=== PATIENT | female | born 1990 | race Caucasian/White ===

== ENCOUNTER 2019-12-27 18:23 | Emergency (ER) | payer OTHER, SELFPAY ==
[2019-12-27 18:23] VITALS: BP 133/80; PULSE 60; RESP 16; TEMP 36.8; O2SAT 100; BMI 47.2
--- NOTE | 2019-12-27 18:48 | CT_ITS ---
PROCEDURE: CT ABDOMEN PELVIS W CON CLINICAL INDICATION: periumbilical pain Periumbilical pain with nausea COMPARISON: No exams were available for comparison TECHNIQUE: IV Contrast: 75ML OPTIRAY 350 Oral Contrast None Axial images obtained with sagittal and coronal reformats. All CT scans at the facility use one or more dose reduction, viz: automated exposure control, ma/kV adjustment per patient size (including targeted exams where dose is matched to indication, i.e. head), or iterative reconstruction technique. FINDINGS: LOWER THORAX: No acute finding. 3 mm noncalcified nodule right middle lobe ABDOMEN & PELVIS: Prior cholecystectomy. Liver, spleen, adrenal glands, pancreas, and kidneys have an unremarkable appearance. There are few small periaortic lymph nodes. No evidence of appendicitis diverticulitis intestinal obstruction or free air. There are few scattered colonic diverticula. No pelvic mass or abnormal fluid collection. No acute bony finding. IMPRESSION: No acute abdominal or pelvic findings. Nonspecific 3 mm nodule right middle lobe Dictated by: Kayden Orozco MD 12/28/2019 05:21 Kayden Orozco MD in [place] 12/28/2019 05:21
[2019-12-27 18:52] LABS: Microscopic, Urine URINE MICROSCOPIC (MICROSCOPIC)
[2019-12-27 18:58] LABS: Basophils % 0.3 % (0.1-2.0); Eosinophils # 0.4 K/mm3 (0.0-0.4); Hemoglobin 12.5 g/dL (12.2-16.2); Lymphocytes % 28.8 % (10-50); Mean Corpuscular HGB Conc 32.8 g/dL (31.8-35.4); Mean Corpuscular Hemoglobin 29.3 pg (27.0-31.2); Mean Corpuscular Volume 89.3 fl (81-99); Mean Platelet Volume 8.1 fl (7.4-10.4); Monocytes # 0.3 K/mm3 (0.1-1.0); Monocytes % 4.5 % (1.7-9.3); Neutrophils # 4.2 K/mm3 (1.8-7.8); Neutrophils % 60.4 % (37.0-80.0); Platelet Count 319 K/mm3 (142-424); Red Blood Count 4.25 M/mm3 (4.20-5.40); Red Cell Distribution Width 14.2 % (11.5-17.5); White Blood Count 6.9 K/mm3 (4.8-10.8)
--- NOTE | 2019-12-27 18:58 | HMH.EDGENADL ---
ED Disposition Clinical Impression: Gastroenteritis Disposition: Home, Self-Care Condition on Discharge: Good Instructions: DI for Acute Abdomen Prescriptions: Dicyclomine HCl [Bentyl 10mg capsule] 10 mg PO TID #9 cap Prescription Printed Ondansetron [Zofran 4mg ODT] 4 mg PO Q6H PRN #20 tab.rapdis PRN Reason: Nausea Prescription Printed Referrals: Jeannette Moreira [Primary Care Provider] - - Critical Care Critical Care Time: No Attestation: On 12/27/19, the high probability of a clinically significant, sudden or life threatening deterioration of the following system(s) required my full and direct attention, intervention and personal management. The time I documented below is in addition to time spent performing reported procedures but includes the following listed in this critical care notation. Medical Decision Making - Dante Inquiry Pt receiving controlled substance: No Vital Signs: 12/27/19 18:23 12/27/19 19:55 Temperature 98.2 F Temperature Source Oral Pulse Rate [Right] 60 61 Respiratory Rate 16 18 Blood Pressure [Right Arm] 133/80 111/68 Blood Pressure Mean [Right Arm] 97 82 02 Sat by Pulse Oximetry 100 100 Oxygen Delivery Method Room Air - Lab Data Lab Results 12/27/19 18:40: Urine Color Yellow, Urine Appearance Clear, Urine pH 6.0, Ur Specific [place] >= 1.030, Urine Protein Trace, Urine Glucose (UA) Negative, Urine Ketones Negative, Urine Blood Negative, Urine Nitrate Negative, Urine Bilirubin Negative, Urine Urobilinogen 0.2, Ur Leukocyte Esterase Negative, Urine WBC Occasional, Ur Squamous Epith Cells 5-10, Urine Bacteria Trace 12/27/19 18:45: WBC 6.9, RBC 4.25, Hgb 12.5, Hct 38.0, MCV 89.3, MCH 29.3, MCHC 32.8, RDW 14.2, Plt Count 319, MPV 8.1, Neut % (Auto) 60.4, Lymph % (Auto) 28.8, [place] % (Auto) 4.5, Eos % (Auto) 6.0, Baso % (Auto) 0.3, Neut # (Auto) 4.2, Lymph # (Auto) 2.0, [place] # (Auto) 0.3, Eos # (Auto) 0.4, Baso # (Auto) 0.0 12/27/19 18:45: Sodium 140, Potassium 3.8, Chloride 104, Carbon Dioxide 28, Anion Gap 11.8, BUN 11, Creatinine 0.70, Estimated Creat Clear 101, Estimated GFR 98, Est GFR ( Amer) 119, Glucose 92, Calcium 9.7, Total Bilirubin 0.4, AST 29, ALT 26, Alkaline Phosphatase 86, Total Protein 7.7, Albumin 4.2, Globulin 3.5 H, Albumin/Globulin Ratio 1.2, Lipase 102 Result diagrams: 12/27/19 18:45 12/27/19 18:45 Orders (Tests/Meds): ED MEDICATIONS Generic Name Dose Route Start Last Admin Trade Name Freq PRN Reason Stop Dose Admin Morphine Sulfate 4 mg 12/27/19 18:51 12/27/19 19:00 Morphine 4mg/Ml Syringe IV 01/26/20 18:50 4 mg Q1HP PRN Administration Breakthru Moderate Pain Discontinued Medications Generic Name Dose Route Start Last Admin Trade Name Freq PRN Reason Stop Dose Admin Acetaminophen 1,000 mg 12/27/19 18:48 12/27/19 18:58 Tylenol 500mg Tablet PO 12/27/19 18:49 1,000 mg ONCE ONE Administration Dicyclomine HCl 10 mg 12/27/19 20:11 Bentyl 10mg Capsule PO 12/27/19 20:12 ONCE ONE Ioversol 75 ml 12/27/19 19:34 12/27/19 19:34 Rad-Optiray 350 100ml Vial IV 12/27/19 19:35 75 ml ONCE ONE Administration Protocol Sodium Chloride 10 ml 12/27/19 19:34 12/27/19 19:34 Rad-Saline Flush 10ml Syringe IV 12/27/19 19:35 10 ml ONCE ONE Administration ORDERS Category Date Time Status CT abdomen pelvis w con Stat Cat Scan 12/27/19 18:48 Taken Lactic Acid Stat Lab 12/27/19 18:48 Ordered Medical Decision Narrative: Summary patient presents for abdominal pain. Differential includes appendicitis, gastritis, diverticulitis, umbilical hernia. On physical examination patient has significant tenderness in the periumbilical area, and mild in the right lower quadrant. Patient vitals are stable, patient was given 1 L bolus IV LR, patient was given IV morphine for pain control. Patient T abdomen pelvis with IV contrast ordered. On repeat assessment, patient patient CTs start
[2019-12-27 19:00] LABS: Chloride 104 mmol/L (98-107); Potassium 3.8 mmoL/L (3.5-5.1); Sodium 140 mmol/L (136-145)
[2019-12-27 19:03] LABS: Alanine Aminotransferase 26 U/L (12-78); Albumin Level 4.2 g/dl (3.5-5.0); Albumin/Globulin Ratio 1.2 (1.1-1.8); Alkaline Phosphatase 86 U/L (38-126); Anion Gap 11.8 mEq/L (5-15); Aspartate Amino Transferase 29 U/L (14-36); Bilirubin,Total 0.4 mg/dl (0.2-1.3); Blood Urea Nitrogen 11 mg/dl (7-17); Calcium 9.7 mg/dl (8.4-10.2); Carbon Dioxide 28 mmol/L (22.0-30.0); Creatinine Clearance Estimated 101 mL/min (50-200); Estimated Glomerular Filt Rate 98 ml/min (>60); GFR (African American) 119 ML/MIN (>60); Globulin 3.5 g/dL (1.3-3.2); Glucose 92 mg/dl (74-100); Lipase 102 U/L (23-300); Total Protein,Serum 7.7 g/dl (6.3-8.2)
[2019-12-27 19:06] LABS: Appearance,Urine CLEAR (Clear); Bilirubin,Urine Negative (Negative); Blood, Urine Negative (Negative); Color,Urine YELLOW (Yellow); Glucose,Urine (UA) Negative (Negative); Ketones,Urine Negative (Negative); Leukocyte Esterase,Urine Negative (Negative); Nitrate,Urine Negative (Negative); Protein,Urine TRACE (Negative); Specific Gravity, Urine >= 1.030 (1.005-1.030); Urobilinogen,Urine 0.2 EU/dl (0.2)
[2019-12-27 19:41] LABS: Bacteria,Urine Trace /lpf; WBC,Urine Occasional #/hpf (0-3)
[2019-12-27 19:55] VITALS: BP 111/68; PULSE 61; RESP 18; O2SAT 100
[2019-12-27 20:23] VITALS: BP 118/57; PULSE 60; RESP 18; O2SAT 100
[2019-12-27 20:25] VITALS: BP 118/57; PULSE 63; RESP 16; TEMP 36.7; O2SAT 96
== END 2019-12-27 20:31 | disposition home or self-care (01) ==
PROVIDERS: Emergency Provider Emergency Medicine; PCP Nurse Practitioner Family
DX: K52.9 Noninfective gastroenteritis and colitis, unspecified (principal); F41.8 Other specified anxiety disorders; G43.709 Chronic migraine without aura, not intractable, without status migrainosus; E03.9 Hypothyroidism, unspecified; Z90.49 Acquired absence of other specified parts of digestive tract
CPT/HCPCS: 74177; 80053; 81001; 83690; 85025; 96374; 99283; Q9967

== ENCOUNTER 2020-01-31 17:14 | Emergency (ER) | payer OTHER, SELFPAY ==
[2020-01-31 17:17] VITALS: BP 131/78; PULSE 101; RESP 17; TEMP 37.3; O2SAT 100; BMI 45.4
--- NOTE | 2020-01-31 17:20 | HMH.EDGENADL ---
ED Disposition Clinical Impression: Generalized body aches Nausea & vomiting Qualifiers: Vomiting type: unspecified Vomiting Intractability: non-intractable Qualified Code(s): R11.2 - Nausea with vomiting, unspecified Abdominal pain Qualifiers: Abdominal location: generalized Qualified Code(s): R10.84 - Generalized abdominal pain Disposition: Home, Self-Care Condition on Discharge: Good Instructions: DI for Viral Syndrome, DI for Nausea -- Adult Additional Instructions: Follow-up with your PCP in the next couple of days. Take medications for nausea if needed. Tylenol/Ibuprofen for pain. Self quarantine until you get the results of your COVID swab but if you have any new, changing, worsening, or concerning symptoms, come back to the emergency department immediately. Prescriptions: ondansetron HCL [Ondansetron 4mg tab*] 4 mg PO BIDP PRN 2 Days #6 tab PRN Reason: Vomiting Transmission Status: Pending to [facility] Referrals: Jeannette Moreira [Primary Care Provider] - Time of Disposition: 19:45 - Critical Care Critical Care Time: No Attestation: On , the high probability of a clinically significant, sudden or life threatening deterioration of the following system(s) required my full and direct attention, intervention and personal management. The time I documented below is in addition to time spent performing reported procedures but includes the following listed in this critical care notation. Medical Decision Making - Medical Records Medical records reviewed: Yes: I reviewed the patient's medical records. MR Comment: 29-year-old female presents emergency department with body aches, headache, cough, sore throat, nausea, abdominal pain over the last couple of days. She arrives emergency department hemodynamically stable, with reassuring vital signs, and looks well on exam. She is tachycardic on arrival and afebrile. She does not appear toxic. Given her overall symptoms, this likely viral syndrome, but with her abdominal pain and tachycardia, will get labs and CT and treat with fluids and reassess. On reassessment, patient remains well. Abdominal exam continues to be benign. Labs are nonactionable at this time. CT of the abdomen pelvis personally reviewed and read by radiology. Read states that mild fluid distention of the small intestinal loops could be a minimal ileus, however she is passing gas and had a bowel movement earlier today. She was made aware of her left adnexal cyst, renal think this is anything concerning, and would not allow with any of her symptoms at this time. She feels better after treatment of her nausea here, I told her to do self quarantine until she finds out the results of her coronavirus swab. Given that she is tolerating p.o., exam is overall unremarkable, and she looks well without fever, advised that she follow-up with her PCP next couple of days and to return with any new or worsening symptoms. She was given strict return precautions and discharge instructions and verbalized understanding and agreement to the plan. Safe to discharge. - Dante Inquiry Pt receiving controlled substance: No Vital Signs: 01/31/20 17:17 01/31/20 17:54 Temperature 99.1 F Temperature Source Oral Pulse Rate [Right] 101 H 89 Respiratory Rate 17 Blood Pressure [Right Arm] 131/78 140/74 Blood Pressure Mean [Right Arm] 95 96 Blood Pressure Source [Right Arm] Automatic Cuff Blood Pressure Position [Right Arm] Sitting 02 Sat by Pulse Oximetry 100 98 Oxygen Delivery Method Room Air - Lab Data Lab Results 01/31/20 17:25: Urine Color Yellow, Urine Appearance Clear, Urine pH 7.0, Ur Specific [place] 1.020, Urine Protein Trace, Urine Glucose (UA) Negative, Urine Ketones Trace, Urine Blood Negative, Urine Nitrate Negative, Urine Bilirubin Negative, Urine Urobilinogen >=8.0, Ur Leukocyte Esterase Negative, Urine WBC 5-10, Ur Squamous Epith Cells 10-20, Urine Bacteria 2+, Fine Granular Casts
--- NOTE | 2020-01-31 17:30 | CT_ITS ---
PROCEDURE: CT ABDOMEN PELVIS W CON CLINICAL INDICATION: ab dpain Generalized abdominal pain with nausea vomiting and diarrhea COMPARISON: CT CT ABDOMEN PELVIS W CON from 12/27/2019 TECHNIQUE: IV Contrast: 75ML OPTIRAY 350 Oral Contrast None Axial images obtained with sagittal and coronal reformats. All CT scans at the facility use one or more dose reduction, viz: automated exposure control, ma/kV adjustment per patient size (including targeted exams where dose is matched to indication, i.e. head), or iterative reconstruction technique. FINDINGS: LOWER THORAX: 3 mm right middle lobe nodule unchanged. Atelectatic changes are present in the right lung base. ABDOMEN & PELVIS: Prior cholecystectomy. The liver, spleen, adrenal glands, and kidneys have an unremarkable appearance. The no pancreatic mass is evident. There is some minimal haziness of the mesenteric fat along the superior mesenteric artery axis. Bowel gas pattern is nonspecific. No evidence of appendicitis. There are some mildly prominent fluid-filled small bowel loops. No definite intestinal obstruction. Urinary bladder wall slightly thickened nonspecific. There is a left adnexal cystic lesion which measures 4.6 cm with mildly thickened wall medially. There are mildly prominent mesenteric lymph nodes which have developed in the interval. No acute bony anomaly. IMPRESSION: 1. Mild mesenteric adenopathy with slight mesenteric edema which may be seen with mesenteric adenitis. 2. 4.6 cm left ovarian cyst. The cyst wall appears slightly thickened medially. Pelvic ultrasound may provide further evaluation. 3. Mildly prominent fluid-filled small bowel loops nonspecific but could be seen with enteritis or ileus. Dictated by: Kayden Orozco MD 01/31/2020 22:19 Kayden Orozco MD in [place] 01/31/2020 22:19
[2020-01-31 17:37] LABS: Basophils % 0.4 % (0.1-2.0); Eosinophils # 0.2 K/mm3 (0.0-0.4); Eosinophils % 3.1 % (0.1-12.0); Hematocrit 39.1 % (37.0-47.0); Hemoglobin 13.6 g/dL (12.2-16.2); Lymphocytes # 1.3 K/mm3 (0.7-4.5); Lymphocytes % 18.3 % (10-50); Mean Corpuscular HGB Conc 34.7 g/dL (31.8-35.4); Mean Corpuscular Hemoglobin 30.5 pg (27.0-31.2); Mean Corpuscular Volume 87.8 fl (81-99); Mean Platelet Volume 7.6 fl (7.4-10.4); Monocytes # 0.5 K/mm3 (0.1-1.0); Monocytes % 7.4 % (1.7-9.3); Neutrophils # 4.9 K/mm3 (1.8-7.8); Neutrophils % 70.8 % (37.0-80.0); Platelet Count 288 K/mm3 (142-424); Red Blood Count 4.45 M/mm3 (4.20-5.40); Red Cell Distribution Width 14.6 % (11.5-17.5); White Blood Count 6.9 K/mm3 (4.8-10.8)
[2020-01-31 17:37] LABS: Microscopic, Urine URINE MICROSCOPIC (MICROSCOPIC)
[2020-01-31 17:41] LABS: Appearance,Urine CLEAR (Clear); Blood, Urine Negative (Negative); Color,Urine YELLOW (Yellow); Glucose,Urine (UA) Negative (Negative); Ketones,Urine TRACE (Negative); Leukocyte Esterase,Urine Negative (Negative); Nitrate,Urine Negative (Negative); Protein,Urine TRACE (Negative); Urobilinogen,Urine >=8.0 EU/dl (0.2)
[2020-01-31 17:43] LABS: Chloride 101 mmol/L (98-107); Potassium 3.4 mmoL/L (3.5-5.1); Sodium 136 mmol/L (136-145)
[2020-01-31 17:45] LABS: Alanine Aminotransferase 19 U/L (12-78); Amylase 57 U/L (30-110); Aspartate Amino Transferase 29 U/L (14-36); Blood Urea Nitrogen 7 mg/dl (7-17); Creatinine Clearance Estimated 101 mL/min (50-200); Estimated Glomerular Filt Rate 98 ml/min (>60); GFR (African American) 119 ML/MIN (>60)
[2020-01-31 17:46] LABS: Albumin Level 4.1 g/dl (3.5-5.0); Albumin/Globulin Ratio 1.2 (1.1-1.8); Alkaline Phosphatase 92 U/L (38-126); Anion Gap 11.4 mEq/L (5-15); Bilirubin,Total 0.5 mg/dl (0.2-1.3); Calcium 9.5 mg/dl (8.4-10.2); Carbon Dioxide 27 mmol/L (22.0-30.0); Globulin 3.4 g/dL (1.3-3.2); Glucose 99 mg/dl (74-100); Lipase 54 U/L (23-300); Total Protein,Serum 7.5 g/dl (6.3-8.2)
[2020-01-31 17:47] LABS: Bilirubin,Urine Negative (Negative)
[2020-01-31 17:52] LABS: Bacteria,Urine 2+ /lpf
[2020-01-31 17:54] VITALS: BP 140/74; PULSE 89; O2SAT 98
--- NOTE | 2020-01-31 18:48 | PC.NURSE ---
per chris in lab covid swab changed to in house swab per new procedure
[2020-01-31 19:00] VITALS: BP 125/78; PULSE 84; RESP 17; O2SAT 98
[2020-01-31 19:30] VITALS: BP 106/64; PULSE 86; RESP 17; O2SAT 96
[2020-01-31 19:56] VITALS: BP 106/67; PULSE 85; RESP 16; TEMP 37.3; O2SAT 97
== END 2020-01-31 19:59 | disposition home or self-care (01) ==
PROVIDERS: Emergency Provider Emergency Medicine; PCP Nurse Practitioner Family
DX: R11.2 Nausea with vomiting, unspecified (principal); R10.84 Generalized abdominal pain; Z20.828 Contact with and (suspected) exposure to other viral communicable diseases; E03.9 Hypothyroidism, unspecified; K58.9 Irritable bowel syndrome, unspecified; F41.8 Other specified anxiety disorders; G43.709 Chronic migraine without aura, not intractable, without status migrainosus; Z79.899 Other long term (current) drug therapy
CPT/HCPCS: 74177; 80053; 81001; 82150; 83690; 85025; 87086; 96365; 96375; 99283; J2405; Q9967; U0003

== ENCOUNTER 2020-12-15 12:50 | Emergency (ER) | payer OTHER, SELFPAY ==
[2020-12-15 13:10] VITALS: BP 138/86; PULSE 67; RESP 16; TEMP 36.6; O2SAT 99; BMI 46.0
--- NOTE | 2020-12-15 13:41 | HMH.EDUTC ---
[facility] [place] Clinical Impression: Viral syndrome, Exposure to COVID-19 virus, Bronchitis Disposition: Home, Self-Care Condition on Discharge: Good Instructions: DI for COVID-19 (Suspected or Confirmed ), Preventing the Spread of Coronavirus Discharge Instructions Additional Instructions: Drink plenty of fluids. Take tylenol or ibuprofen for pain or fever. Take the medications as directed. Follow up with your regular doctor. GO TO THE ER FOR ANY WORSENING SYMPTOMS Quarantine until you know the results of your covid-19 test. If it is positive, the health department should call you and give you further instructions about your length of Quarantine and other thing. The cough medication (promethazine dm) will make you drowsy, so don't drive or operate heavy machinery after taking it. Prescriptions: Ondansetron [Zofran 4mg ODT] 4 mg PO Q8HP PRN #12 tab.rapdis PRN Reason: Nausea Transmission Status: Received by [facility] # Azithromycin [Z-Todd 250mg Tab*] 250 mg PO UD DOSE PK #6 tab Transmission Status: Received by [facility] #[id number] Referrals: Jeannette Moreira [Primary Care Provider] - Forms: Work/School Release Time of Disposition: 13:46 Medical Decision Making - Medical Records Medical records reviewed: No: I reviewed the patient's medical records. - Dante Inquiry Pt receiving controlled substance: No Vital Signs: 12/15/20 13:10 12/15/20 13:50 Temperature 97.9 F 98 F Temperature Source Oral Pulse Rate 76 Pulse Rate [Left] 67 Respiratory Rate 16 14 Blood Pressure 141/87 H Blood Pressure [Right Arm] 138/86 Blood Pressure Mean [Right Arm] 103 02 Sat by Pulse Oximetry 99 - Lab Data Lab results reviewed: Yes: I reviewed the patient's lab results. Lab Results 12/15/20 13:36: Strep Scn [facility] Negative Orders (Tests/Meds): ORDERS Category Date Time Status Strep Screen Confirmation Stat Micro 12/15/20 13:36 Received [facility] [place] - General Stated complaint: headache, body asce sob stom pain Time Seen by Provider: 12/15/20 13:41 Mode of Arrival: Ambulatory Source of Information: Patient Limitations: No Limitations Description of Symptoms (Recalled from Triage Doc. by RN): PT WAS EXPOSED TO A COVID POSITIVE PT ONE WEEK AGO. PT NOW C/O RAMIREZ, BODY ACHES AND COUGHING. HEENT Symptoms (Recalled from RN notes): Yes (RAMIREZ) Resp Symptoms (Recalled from RN notes): Yes (COUGH) Skin Symptoms (Recalled from RN notes): No MS Symptoms (Recalled from RN notes): No Functional Status (Recalled from RN notes): BODY ACHES - History of Present Illness Provider Complaint: She c/o feeling bad for the past 2 days. She was exposed to covid-19 1 week ago. She c/o sore throat, cough, chest congestion, body aches and chilling. - Related Data Home Medications Medication Instructions Recorded Confirmed Levothyroxine Sodium [Synthroid 50 mcg PO DAILY 12/27/19 01/31/20 50mcg (0.05mg) tab] Previous Rx's Medication Instructions Recorded ondansetron HCL [Ondansetron 4mg 4 mg PO BIDP PRN 2 Days #6 tab 01/31/20 tab*] Azithromycin [Z-Todd 250mg Tab*] 250 mg PO UD DOSE PK #6 tab 12/15/20 Ondansetron [Zofran 4mg ODT] 4 mg PO Q8HP PRN #12 tab.rapdis 12/15/20 Allergies Allergy/AdvReac Type Severity Reaction Status Date / Time acetaminophen Allergy Verified 12/27/19 20:23 [From Excedrin PM] amoxicillin Allergy Verified 12/27/19 20:23 diphenhydramine Allergy Verified 12/27/19 20:23 [From Excedrin PM] - Worker's Comp Is this a Worker's Comp case?: No [facility] History - Hepatitis A Screen Drug use history?: No High risk sexual behaviors?: No History of sexually transmitted infection?: No Currently employed?: No Childcare worker?: No Do you have indoor plumbing?: Yes Do you have electricity?: Yes Attestation statement:: This patient has been screened for Hepatitis A risk factors. I have reviewed the patient
[2020-12-15 13:48] LABS: UTC Strep Screen (Rapid) Negative (Negative)
[2020-12-15 13:50] VITALS: BP 141/87; PULSE 76; RESP 14; TEMP 36.6
== END 2020-12-15 13:57 | disposition home or self-care (01) ==
PROVIDERS: Emergency Provider Nurse Practitioner Family; PCP Nurse Practitioner Family
DX: J20.9 Acute bronchitis, unspecified (principal); Z20.822 Contact with and (suspected) exposure to COVID-19; F41.8 Other specified anxiety disorders
CPT/HCPCS: 87880; 99203; G0463; U0003